=== PATIENT | female | born 1945 | race Caucasian/White ===

== ENCOUNTER 2018-05-17 15:01 | Emergency (ER) | payer MEDICARE, OTHER ==
--- NOTE | 2018-05-17 15:22 | Emergency Department Record ---
History of Present Illness - General Chief complaint: Pain Stated complaint: RIGHT KNEE PAIN Time Seen by Provider: 05/17/18 15:17 Source: Patient Mode of Arrival: Wheelchair Limitations: No limitations - History of Present Illness Initial comments: The patient is here due to R knee pain. She has been having pain off and on for 2 weeks and then was getting into her truck about 2 hours ago and felt worsening pain to the R knee. Since it has been very painful with walking. She denies any fall or any specific injury. MD Complaint: Extremity pain Onset/Timin -: Hour(s) Location: Right, Knee Severity scale (1-10): 4 Quality: Aching Improves with: Nothing Worsens with: Nothing - Related Data Home Medications Medication Instructions Recorded Confirmed Last Taken Omeprazole 20 mg PO DAILY 05/17/18 05/17/18 05/17/18 Allergies Allergy/AdvReac Type Severity Reaction Status Date / Time acetaminophen [From VICODIN] Allergy Unknown RAPID Verified 05/17/18 15:16 HEART RATE codeine [CODEINE] Allergy Unknown RAPID Verified 05/17/18 15:16 HEART RATE hydrocodone bitartrate Allergy Unknown RAPID Verified 05/17/18 15:16 [From VICODIN] HEART RATE ibuprofen [From MOTRIN] Allergy Unknown RAPID Verified 05/17/18 15:16 HEART RATE mannitol [From RECLAST] Allergy Unknown RAPID Verified 05/17/18 15:16 HEART RATE meperidine HCl [From DEMEROL] Allergy Unknown PT UNSURE Verified 05/17/18 15:16 OF REACTION propoxyphene napsylate Allergy Unknown PT UNSURE Verified 05/17/18 15:16 [From DARVOCET-N 100] OF REACTION water for injection,sterile Allergy Unknown RAPID Verified 05/17/18 15:16 [From RECLAST] HEART RATE zoledronic acid Allergy Unknown RAPID Verified 05/17/18 15:16 [From RECLAST] HEART RATE hydromorphone [From Dilaudid] Allergy PT UNSURE Verified 05/17/18 15:16 OF REACTION chlorpheniramine maleate AdvReac Unknown VOMITING Verified 05/17/18 15:16 [From ORNADE] phenylpropanolamine HCl AdvReac Unknown VOMITING Verified 05/17/18 15:16 [From ORNADE] (Continued): Allergy Unknown PT UNSURE Uncoded 05/17/18 15:16 OF REACTION Travel Screening - Travel/Exposure Within Last 30 Days Have you traveled within the last 30 days?: No - Travel/Exposure Within Last Year Have you traveled outside the [place] in the last year?: No - Additonal Travel Details Have you been exposed to anyone with a communicable illness?: No - Travel Symptoms Symptom Screening: None Review of Systems Constitutional: Denies: Chills, Fever Eyes: Denies: Eye discharge ENT: Denies: Congestion Respiratory: Denies: Cough, Dyspnea Past Medical History - SOCIAL HISTORY Smoking Status: Never smoker Alcohol Use: None Drug Use: None - RESPIRATORY Hx Respiratory Disorders: Yes Hx Asthma: Yes Hx Pneumonia: Yes Hx Sleep Apnea: Yes - CARDIOVASCULAR Hx Cardio Disorders: No - NEURO Hx Neuro Disorders: Yes Hx Seizures: Yes (Epilleptic) - GI Hx GI Disorders: No - Hx Genitourinary Disorders: No - ENDOCRINE Hx Endocrine Disorders: No - MUSCULOSKELETAL Hx Musculoskeletal Disorders: Yes Hx Osteoporosis: Yes - PSYCH Hx Psych Problems: No - HEMATOLOGY/ONCOLOGY Hx Hematology/Oncology Disorders: No Family Medical History Any Significant Family History?: No *Cancer Comment: Daughter Hx Heart Disease: Father, Mother Hx Stroke: Father, Mother Physical Exam - General General Appearance: Alert, Oriented x3, Cooperative, No acute distress - Head Head exam: Atraumatic, Normocephalic, Normal inspection - Eye Eye exam: Normal appearance, PERRL - Neck Neck exam: Normal inspection, Full ROM. negative: Tenderness - Respiratory Respiratory exam: Normal lung sounds bilaterally. negative: Respiratory distress - Cardiovascular Cardiovascular Exam: Regular rate, Normal rhythm, Normal heart sounds - Extremities Extremities exam: Normal inspection, Full ROM (The patient has full ROM of the R knee with pain on full flexion.), Normal capillary refill, Tenderness (There is mild tenderness to the inferior anterior knee. There is no effusion or ligamentous laxity. ). negative: Pedal edema Course Vital Signs 05/17/18 15:07 Temperature 98.2 F Pulse Rate 77 Respiratory 16 Rate Blood Pressure 150/89 Pulse Ox 96 - Reevaluation(s) Reevaluation #1: I explained to the patient the need to take her home pain medicines and see her PCP if not better by Monday. 05/17/18 16:04 Reevaluation #2: The patient is doing better at discharge and is able to walk to the bathroom with no difficulty. 05/17/18 16:21 Medical Decision Making - Data Complexity MDM Data: X-Ray Ordered and/or Reviewed - Radiology Data Radiology results: Report reviewed (R Knee: Neg for any acute changes. Mild to mod arthritis.) Disposition Disposition: Discharge Clinical Impression: Knee pain, acute Qualifiers: Laterality: right Qualified Code(s): M25.561 - Pain in right knee Disposition: Home, Self-Care Condition: (2) Stable Instructions: Knee Pain (ED) Additional Instructions: Please take your home pain medicines as needed and use ice to the knee for the next 3 days. Please use your walker as needed and see your family doctor if not better by Monday. Return to the ER for any worsening symptoms. Forms: Patient Portal Access Time of Disposition: 16:06 Quality - Quality Measures Quality Measures: N/A - Blood Pressure Screening View Details: Yes Does Patient Have Any of the Following: No Blood Pressure Classification: Pre-Hypertensive BP Reading Systolic Measurement: 150 Diastolic Measurement: 89 Screening for High Blood Pressure: < Pre-Hypertensive BP, F/U Documented > [ G8950] Pre-Hypertensive Follow-up Interventions: Referral to alternative/primary care provider.
--- NOTE | 2018-05-20 11:51 | RADIOLOGY REPORT ---
EXAM: KNEE, RIGHT 3 VIEWS HISTORY: PAIN FOR ONE WEEK, WORSENING TODAY. NO REPORTED INJURY. TECHNIQUE: AP, oblique and lateral views of the right knee. COMPARISON: None. ENCOUNTER: Initial. FINDINGS: There is normal bone mineralization. No acute fracture, dislocation, nor destructive bone lesion. 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 No definite joint effusion. No focal soft tissue abnormality. IMPRESSION: NO ACUTE BONE NOR JOINT ABNORMALITY. TRICOMPARTMENTAL DEGENERATIVE CHANGES, MOST PRONOUNCED IN THE MEDIAL COMPARTMENT WHERE THEY ARE MILD TO MODERATE IN DEGREE. JOB NUMBER: [id number] MTDD
== END 2018-05-17 16:31 | disposition home or self-care (01) ==
LOC: ER 15:01
DX: M25.561 Pain in right knee (principal)
CPT/HCPCS: 99283

== ENCOUNTER 2019-08-04 15:36 | Emergency (ER) | payer MEDICARE, OTHER ==
[2019-08-04] MEDS ORDERED: METHYLPREDNISOLONE PF 125MG/VIAL IVP ONE (17:12)
[2019-08-04] MEDS ORDERED: IPRATROPIUM/ALBUTEROL (0.5MG/3MG) NEB INH ONE (17:12)
--- NOTE | 2019-08-04 17:17 | Emergency Department Record ---
History of Present Illness - General Stated Complaint: JOSEPHINE/ Time Seen by Provider: 08/04/19 17:12 Source: Patient Mode of Arrival: Ambulatory Limitations: No limitations - History of Present Illness Initial Comments: 74 yo female presents to ED for evaluation of shortness of breath, cough symptoms for the past several days, report history of asthma at her baseline. Patient reports low-grade fever symptoms, reports history of pneumonia and bronchitis previously. Patient has been using albuterol at home. Patient denies lower extremity edema symptoms or chest discomfort symptoms on examination. MD Complaint: Cough, Fever Severity: Moderate Consistency: Constant Improves With: Nothing Worsens With: Nothing Associated Symptoms: Cough Treatments Prior to Arrival: Other (Albuterol) - Related Data Previous Rx's Medication Instructions Recorded Albuterol Sulfate 0.083% [Neb] 3 ml NEB .EVERY 4-6 HOURS PRN #90 08/04/19 [Albuterol Sulfate] ml Doxycycline Hyclate 100 mg PO BID #14 cap 08/04/19 Prednisone [Prednisone 20Mg] 20 mg PO BID #12 tab 08/04/19 Allergies Allergy/AdvReac Type Severity Reaction Status Date / Time acetaminophen [From VICODIN] Allergy Unknown RAPID Verified 05/17/18 15:16 HEART RATE codeine [CODEINE] Allergy Unknown RAPID Verified 05/17/18 15:16 HEART RATE hydrocodone bitartrate Allergy Unknown RAPID Verified 05/17/18 15:16 [From VICODIN] HEART RATE ibuprofen [From MOTRIN] Allergy Unknown RAPID Verified 05/17/18 15:16 HEART RATE mannitol [From RECLAST] Allergy Unknown RAPID Verified 05/17/18 15:16 HEART RATE meperidine HCl [From DEMEROL] Allergy Unknown PT UNSURE Verified 05/17/18 15:16 OF REACTION propoxyphene napsylate Allergy Unknown PT UNSURE Verified 05/17/18 15:16 [From DARVOCET-N 100] OF REACTION water for injection,sterile Allergy Unknown RAPID Verified 05/17/18 15:16 [From RECLAST] HEART RATE zoledronic acid Allergy Unknown RAPID Verified 05/17/18 15:16 [From RECLAST] HEART RATE hydromorphone [From Dilaudid] Allergy PT UNSURE Verified 05/17/18 15:16 OF REACTION chlorpheniramine maleate AdvReac Unknown VOMITING Verified 05/17/18 15:16 [From ORNADE] phenylpropanolamine HCl AdvReac Unknown VOMITING Verified 05/17/18 15:16 [From ORNADE] Review of Systems Constitutional: Reports: Fever. Denies: Chills, Malaise, Night sweats Eyes: Denies: Eye discharge, Eye pain ENT: Reports: Congestion. Denies: Ear pain, Epistaxis Respiratory: Reports: Cough, Dyspnea, Wheezes Cardiovascular: Denies: Chest pain, Dyspnea on exertion Endocrine: Denies: Fatigue, Heat or cold intolerance Gastrointestinal: Denies: Abdominal pain, Nausea, Vomiting Genitourinary: Denies: Incontinence, Retention Musculoskeletal: Denies: Arthralgia, Back pain Skin: Denies: Bruising, Change in color Neurological: Denies: Abnormal gait, Confusion, Headache, Tingling, Tremors Psychiatric: Denies: Anxiety Hematological/Lymphatic: Denies: Anemia, Blood Clots Past Medical History - SOCIAL HISTORY Smoking Status: Never smoker Drug Use: None - RESPIRATORY Hx Respiratory Disorders: Yes Hx Asthma: Yes Hx Pneumonia: Yes Hx Sleep Apnea: Yes - CARDIOVASCULAR Hx Cardio Disorders: No - NEURO Hx Neuro Disorders: Yes Hx Seizures: Yes (Epilleptic) - GI Hx GI Disorders: No - Hx Genitourinary Disorders: No - ENDOCRINE Hx Endocrine Disorders: No - MUSCULOSKELETAL Hx Musculoskeletal Disorders: Yes Hx Osteoporosis: Yes - PSYCH Hx Psych Problems: No - HEMATOLOGY/ONCOLOGY Hx Hematology/Oncology Disorders: No Family Medical History *Cancer Comment: Daughter Hx Heart Disease: Father, Mother Hx Stroke: Father, Mother Physical Exam - General General Appearance: Alert, Oriented x3, Cooperative, Mild distress Limitations: No limitations - Head Head exam: Atraumatic, Normocephalic, Normal inspection Head exam detail: negative: Abrasion, Contusion, Malik's sign, General tenderness, Hematoma, Laceration - Eye Eye exam: Normal appearance. negative: Conjunctival injection, Periorbital swelling, Periorbital tenderness, Scleral icterus - ENT Ear exam: negative: Auricular hematoma, Auricular trauma Nasal Exam: negative: Active bleeding, Discharge, Dried blood, Foreign body Mouth exam: negative: Drooling, Laceration, Muffled voice, Tongue elevation - Neck Neck exam: Normal inspection. negative: Meningismus, Tenderness - Respiratory Respiratory exam: Decreased breath sounds, Prolonged expiratory, Wheezes. negative: Rales, Respiratory distress, Rhonchi, Stridor - Cardiovascular Cardiovascular Exam: Regular rate, Normal rhythm, Normal heart sounds - GI/Abdominal GI/Abdominal exam: Soft. negative: Distended, Rebound, Rigid, Tenderness - Rectal Rectal exam: Deferred - exam: Deferred - Extremities Extremities exam: Normal inspection. negative: Pedal edema, Tenderness - Back Back exam: Denies: CVA tenderness (R), CVA tenderness (L) - Neurological Neurological exam: Alert, Normal gait, Oriented X3 - Psychiatric Psychiatric exam: Normal affect, Normal mood - Skin Skin exam: Normal color. negative: Abrasion Type of lesion: negative: abrasion Course - Reevaluation(s) Reevaluation #1: 08/04/19 18:04 CXR: No acute process Patient's laboratory studies were reviewed and appear grossly unremarkable for an acute process. Patient was updated on all results, reports improvement following duoneb and solumedrol. Patient's examination appears c/w acute bronchitis. Will discharge home on Doxycycline and Prednisone as directed for outpatient treatment with instructions to return to the ED for re-evaluation. Medical Decision Making - Lab Data Result diagrams: 08/04/19 17:15 08/04/19 17:15 Disposition Disposition: Discharge Clinical Impression: Acute bronchitis Qualifiers: Bronchitis organism: unspecified organism Qualified Code(s): J20.9 - Acute bronchitis, unspecified Disposition: Home, Self-Care Condition: (2) Stable Instructions: Acute Bronchitis (ED) Additional Instructions: Return to ED if your symptoms worsen or if you have any concerns. Doxycycline and Prednisone as directed. Follow-up with your family doctor in 3-5 days as directed. Prescriptions: Albuterol Sulfate 0.083% [Neb] [Albuterol Sulfate] 3 ml NEB .EVERY 4-6 HOURS PRN #90 ml PRN Reason: Difficulty In Breathing Doxycycline Hyclate 100 mg PO BID #14 cap Prednisone [Prednisone 20Mg] 20 mg PO BID #12 tab Forms: Patient Portal Access Time of Disposition: 17:17 Quality - Quality Measures Quality Measures: N/A - Blood Pressure Screening Does Patient Have Any of the Following: Active Dx of HTN Blood Pressure Classification: Hypertensive Reading Systolic Measurement: 162 Diastolic Measurement: 94 Screening for High Blood Pressure: Patient Exclusion, Hx of HTN [G9744]
[2019-08-04 17:43] LABS: ABSOLUTE NEUTROPHIL COUNT 5.06; BASO % 0.3 % (0-6); EOS % 2.4 % (0-6); GRAN % 71.8 % (47-80); HEMATOCRIT 38.4 % (35.0-47.0); HEMOGLOBIN 12.4 gm/dl (11.6-16.0); LYMPH % 14.9 % (16-45); MEAN CELL VOLUME 93.2 fl (81-97); MEAN CORPUSCULAR HEMOGLOBIN 30.1 pg (27-33); MEAN CORPUSCULAR HGB CONC 32.3 g/dl (32-36); MEAN PLATELET VOLUME 10.8 fl (7.4-10.4); MONO % 10.6 % (0-9); PLATELET COUNT 303 K/uL (130-400); RED BLOOD COUNT 4.12 M/uL (3.80-5.40); RED CELL DISTRIBUTION WIDTH 14.8 % (11.5-14.5); WHITE BLOOD COUNT W/O DIFF 7.1 K/uL (4.2-12.2)
[2019-08-04 17:58] LABS: BILIRUBIN,TOTAL < 0.20 mg/dL (0.2-1.0); BLOOD UREA NITROGEN 19 mg/dL (8-23); CREATININE 0.9 mg/dL (0.5-0.9); EST GLOMERULAR FILTRATION RATE > 60 mL/min
[2019-08-04 17:59] LABS: TOTAL PROTEIN 7.2 g/dL (6.6-8.7)
[2019-08-04 18:01] LABS: GLUCOSE,RANDOM 91 mg/dL (74-109)
[2019-08-04 18:03] LABS: ALB/GLOB RATIO 1.1 (1.1-1.8); ALBUMIN 3.8 g/dL (4.0-5.0); ALKALINE PHOSPHATASE 121 U/L (35-104); ALT/SGPT 15 U/L (<33); AST/SGOT 20 U/L (10.0-35.0)
--- NOTE | 2019-08-04 18:07 | RADIOLOGY REPORT ---
EXAMINATION: Two View Chest Radiographs EXAM DATE: 08/04/2019 5:34 PM TECHNIQUE: Frontal and lateral views INDICATION: JOSEPHINE COMPARISON: CXR 11/16/2018 ENCOUNTER: Not applicable FINDINGS: The heart, mediastinum, and pulmonary vasculature are normal. No lung consolidation or pleural effu sions are present. Visualized osseous structures unchanged. IMPRESSION: No acute cardiopulmonary disease is present. Dictated by: Pat Pitts MD on 08/04/2019 6:04 PM. .
== END 2019-08-04 18:24 | disposition home or self-care (01) ==
LOC: ER 15:36
DX: J20.9 Acute bronchitis, unspecified (principal); R06.02 Shortness of breath
CPT/HCPCS: 71046; 80053; 85025; 94640; 96374; 99284; J2930